=== PATIENT | male | born 1985 | race African-American/Black ===

== ENCOUNTER 2021-06-09 14:05 | Emergency (ER) | payer OTHER ==
[2021-06-09] MEDS ORDERED: Ketorolac Tromethamine 30 MG/ML VIAL ONE (15:00)
== END 2021-06-09 15:14 | disposition home or self-care (01) ==
LOC: CSHERS 14:05
DX: K02.9 Dental caries, unspecified (principal); J45.909 Unspecified asthma, uncomplicated; F17.210 Nicotine dependence, cigarettes, uncomplicated
CPT/HCPCS: 96372; 99283; J1885